=== PATIENT | male | born 1950 | race Hispanic/Latino ===

== ENCOUNTER 2019-02-12 06:13 | Observation (INO) | payer MEDICARE ==
[2019-02-12] MEDS ORDERED: NACL 0.9% 500 ML 500 ML IV SCH (07:00)
[2019-02-12 07:13] LABS: Basophils # (Auto) 0.1 K/mm3 (0.0-0.1); Basophils % (Auto) 1.1 % (0.0-1.8); Eosinophils # (Auto) 0.2 K/mm3 (0.0-0.4); Eosinophils % (Auto) 2.7 % (0.0-4.3); Hematocrit 44.3 % (35.5-45.6); Hemoglobin 15.1 gm/dl (11.8-15.2); Lymphocytes % (Auto) 30.2 % (13.4-35.0); Mean Corpuscular HGB Conc 34 % (32-34); Mean Corpuscular Volume 88 fl (84-94); Monocytes # (Auto) 0.8 K/mm3 (0.0-0.8); Platelet Count 202 K/mm3 (140-440); Red Blood Count 5.05 M/mm3 (3.65-5.03); Red Cell Distribution Width 13.7 % (13.2-15.2)
[2019-02-12 07:24] LABS: INR 0.95 (0.87-1.13)
[2019-02-12 07:25] LABS: Partial Thromboplastin Time 24.6 Sec. (24.2-36.6)
[2019-02-12] MEDS: ECOTRIN PO SCH ×2 (07:25→22:10)
[2019-02-12 07:34] LABS: BUN/Creatinine Ratio 16; Blood Urea Nitrogen 13 mg/dL (9-20); Calcium 9.2 mg/dL (8.4-10.2); Hemolysis Index 1
[2019-02-12] MEDS ORDERED: SUBLIMAZE ONE (08:27)
[2019-02-12] MEDS ORDERED: SOLU-Medrol ONE (08:27)
[2019-02-12] MEDS ORDERED: VERSED ONE (08:27)
[2019-02-12] MEDS ORDERED: BENADRYL ONE (08:27)
[2019-02-12] MEDS ORDERED: XYLOCAINE 2% INFILTRATI ONE ×2 (08:28→09:17)
[2019-02-12] MEDS ORDERED: NITROGLYCERIN SYRINGE 3 ML ONE (08:28)
[2019-02-12] MEDS ORDERED: HEPARIN/NS 5000 UNIT/500ML(CATH LAB) 1,000 ML IR ONE (08:28)
[2019-02-12] MEDS ORDERED: CALAN ONE (08:28)
[2019-02-12] MEDS ORDERED: PEPCID IV ONE (08:32)
[2019-02-12] MEDS: HEPARIN 10,000 UNITS/10 ML ONE ×3 (09:03→09:28)
[2019-02-12] MEDS ORDERED: ATROPINE 0.1% (CARDIAC) ONE (09:25)
[2019-02-12] MEDS ORDERED: NACL 0.9% 500 ML 500 ML ONE (09:25)
[2019-02-12] MEDS ORDERED: ALUM-MAG HYDROX-SIMETH 200-200-20MG/5ML ONE (09:46)
[2019-02-12] MEDS ORDERED: PLAVIX ONE (09:46)
[2019-02-12] MEDS ORDERED: D50W (25GM) Syringe IV PRN (10:21)
--- NOTE | 2019-02-12 10:26 | Short Stay Summary ---
Short Stay Documentation Date of service: 02/12/19 - History H&P: obtained from office - Allergies and Medications Current Medications: Allergies iodine Allergy (Unverified 02/12/19 06:14) Itching Home Medications Medication Instructions Recorded Confirmed Last Taken Type Lisinopril 10 mg PO DAILY 02/09/15 02/12/19 1 Day Ago History ~02/11/19 metFORMIN [Glucophage] 500 mg PO BID 02/09/15 02/12/19 2 Days Ago History ~02/10/19 AtorvaSTATin 20 mg PO DAILY 02/12/19 02/12/19 1 Day Ago History ~02/11/19 Cholecalciferol (Vitamin D3) 1,000 units PO DAILY 02/12/19 02/12/19 1 Day Ago History ~02/11/19 Eql [place]-3 Fish Oil 1,000 mg 1,000 mg PO DAILY 02/12/19 02/12/19 1 Day Ago History ~02/11/19 Metoprolol 25 mg PO DAILY 02/12/19 02/12/19 1 Day Ago History ~02/11/19 Active Medications Aspirin (Ecotrin) 325 mg PO QDAY [facility] Last Admin: 02/12/19 07:25 Dose: 325 mg Documented by: Atorvastatin Calcium (Lipitor) 80 mg PO QHS TERESA Clopidogrel Bisulfate (Plavix) 75 mg PO QDAY [facility] Dextrose (D50w (25gm) Syringe) 50 ml IV PRN PRN PRN Reason: Hypoglycemia Sodium Chloride (Nacl 0.9% 500 Ml) 500 mls @ 50 mls/hr IV DIRECT TERESA Stop: 02/12/19 16:59 Last Admin: 02/12/19 07:30 Dose: 50 mls/hr Documented by: Insulin Human Lispro (Humalog) 0 unit SUB-Q ACHS TERESA; Protocol Lisinopril (Zestril) 20 mg PO QDAY TERESA Metoprolol Succinate (Toprol Xl) 12.5 mg PO QDAY [facility] - Brief post op/procedure progress note Date of procedure: 02/12/19 Pre-op diagnosis: chest pain Post-op diagnosis: other (CAD) Procedure: [facility] with PCI - see dictated cath report Anesthesia: local Estimated blood loss: none Condition: stable - Disposition Condition at discharge: Good Disposition: DC-01 TO HOME OR SELFCARE - Discharge Diagnoses (1) CAD (coronary artery disease) Status: Chronic (2) Stented coronary artery Status: Chronic (3) HTN (hypertension) Status: Chronic (4) Diabetes Status: Chronic (5) Hyperlipidemia Status: Chronic Short Stay Discharge Plan Activity: advance as tolerated Diet: low fat, low cholesterol, low salt, diabetic Wound: open to air, keep clean and dry, per your surgeon's advice Follow up with: MARGUERITE RUSHING MD [Primary Care Provider] - 7 Days SIVA IGLESIAS MD [Staff Physician] - 7 Days ([place] office, 02/24/2019 @ 3:00PM) Prescriptions: AtorvaSTATin [Lipitor] 80 mg PO QHS #30 tablet Clopidogrel [Plavix] 75 mg PO QDAY #30 tablet
[2019-02-12] MEDS: HumaLOG SUB-Q SCH ×3 (16:30→22:13)
[2019-02-13 05:42] LABS: Basophils % (Auto) 0.1 % (0.0-1.8); Hematocrit 44.5 % (35.5-45.6); Hemoglobin 14.7 gm/dl (11.8-15.2); Lymphocytes # (Auto) 0.9 K/mm3 (1.2-5.4); Lymphocytes % (Auto) 6.8 % (13.4-35.0); Mean Corpuscular HGB Conc 33 % (32-34); Mean Corpuscular Volume 89 fl (84-94); Monocytes # (Auto) 1.3 K/mm3 (0.0-0.8); Monocytes % (Auto) 10.1 % (0.0-7.3); Platelet Count 219 K/mm3 (140-440); Red Cell Distribution Width 13.8 % (13.2-15.2)
[2019-02-13 05:56] LABS: Creatine Kinase MB 2.9 ng/mL (0.0-4.0)
[2019-02-13 05:57] LABS: BUN/Creatinine Ratio 24; Blood Urea Nitrogen 17 mg/dL (9-20); Calcium 9.4 mg/dL (8.4-10.2); Hemolysis Index 40
[2019-02-13 09:38] VITALS: BP 141/75
[2019-02-13] MEDS ORDERED: ZESTRIL PO SCH (10:00)
[2019-02-13] MEDS ORDERED: PLAVIX PO SCH (10:00)
[2019-02-13] MEDS ORDERED: TOPROL XL PO SCH (10:00)
[2019-02-13] MEDS: ECOTRIN PO SCH (10:52)
--- NOTE | 2019-02-13 10:58 | Discharge Summary ---
<BETSY MIXON - Last Filed: 02/13/19 10:54> Providers - Providers Date of Admission: 02/12/19 10:14 Date of discharge: 02/13/19 Attending physician: SUSAN BUI 02/12/19 Consult to Cardiac Rehabilitation [CONS] Routine Reason For Exam: post pci 02/12/19 06:38 Consult to Cardiac Rehabilitation [CONS] Routine Reason For Exam: Cardiac Rehab Evaluation Primary care physician: MARGUERITE RUSHING MD Hospitalization Reason for admission: PCI Condition: Good Procedures: PCI Hospital course: Patient stable since procedure. No complaints. Disposition: DC-01 TO HOME OR SELFCARE - Discharge Diagnoses (1) CAD (coronary artery disease) Status: Chronic (2) Diabetes Status: Chronic Qualifiers: Diabetes mellitus type: type 2 (3) HTN (hypertension) Status: Chronic (4) Hyperlipidemia Status: Chronic (5) Stented coronary artery Status: Chronic (6) Calculus of left kidney Status: Acute Core Measure Documentation - Palliative Care Palliative Care/ Comfort Measures: Not Applicable Exam - Constitutional Vitals: Temp Pulse Resp BP Pulse Ox 97.4 F L 71 16 141/75 96 02/13/19 08:18 02/13/19 08:18 02/13/19 08:18 02/13/19 08:18 02/13/19 08:18 General appearance: Present: no acute distress - EENT Eyes: Present: PERRL ENT: hearing intact - Neck Neck: Present: supple - Respiratory Respiratory effort: normal - Cardiovascular Rhythm: regular - Extremities Extremities: no ischemia Peripheral Pulses: within normal limits - Abdominal General gastrointestinal: Present: soft, non-tender Male genitourinary: Present: deferred - Rectal Rectal Exam: deferred - Integumentary Integumentary: Present: clear - Musculoskeletal Musculoskeletal: strength equal bilaterally - Psychiatric Psychiatric: appropriate mood/affect - Neurologic Neurologic: other (Deferred) - Additional findings Additional findings: Right radial and right groin sites c/d/i with no complications. Plan Activity: other (May resume exercise on 02/15. ) Weight Bearing Status: Weight Bear as Tolerated Diet: low fat, low cholesterol, low salt Wound: open to air Special Instructions: hold Metformin, other (hold Metformin for 48 hours after procedure. ) Follow up with: SIVA IGLESIAS MD [Staff Physician] - 7 Days ([place] office, 02/24/2019 @ 3:00PM) MARGUERITE RUSHING MD [Primary Care Provider] - 7 Days Prescriptions: AtorvaSTATin [Lipitor] 80 mg PO QHS #30 tablet Clopidogrel [Plavix] 75 mg PO QDAY #30 tablet <SARA GROVE - Last Filed: 02/17/19 17:06> Providers - Providers Date of Admission: 02/12/19 10:14 Attending physician: SUSAN BUI 02/12/19 Consult to Cardiac Rehabilitation [CONS] Routine Reason For Exam: post pci 02/12/19 06:38 Consult to Cardiac Rehabilitation [CONS] Routine Reason For Exam: Cardiac Rehab Evaluation Primary care physician: MARGUERITE RUSHING MD Core Measure Documentation - Core Measures Any of the following diagnoses?: none Exam - Constitutional Vitals: Temp Pulse Resp BP Pulse Ox 97.4 F L 71 16 141/75 96 02/13/19 08:18 02/13/19 08:18 02/13/19 08:18 02/13/19 08:18 02/13/19 08:18
--- NOTE | 2019-02-13 11:00 | Progress Note ---
Assessment and Plan Patient stable for discharge. Follow-up with Dr. Summers scheduled in our office on 02/24/2019. Patient seen in conjunction with Dr. Funez, who agrees with assessment and plan. - Patient Problems (1) CAD (coronary artery disease) Current Visit: Yes Status: Chronic (2) Diabetes Current Visit: Yes Status: Chronic Qualifiers: Diabetes mellitus type: type 2 (3) HTN (hypertension) Current Visit: Yes Status: Chronic (4) Hyperlipidemia Current Visit: Yes Status: Chronic (5) Stented coronary artery Current Visit: Yes Status: Chronic (6) Calculus of left kidney Current Visit: No Status: Acute Subjective Date of service: 02/13/19 Principal diagnosis: Chest pain Interval history: Patient is post-PCI. Resting in bed in NAD. Right radial and right groin sites c/d/i with no complications. Objective - Constitutional Vitals: Last Vital Signs Temp 97.4 F L 02/13/19 08:18 Pulse 71 02/13/19 08:18 Resp 16 02/13/19 08:18 BP 141/75 02/13/19 08:18 Pulse Ox 96 02/13/19 08:18 General appearance: Present: no acute distress - EENT Eyes: PERRL ENT: hearing intact - Neck Neck: supple - Respiratory Respiratory effort: normal - Breasts Breasts: deferred - Cardiovascular Rhythm: regular Extremities: pulses intact, No edema - Gastrointestinal General gastrointestinal: Present: soft, non-tender Rectal Exam: deferred - Integumentary Integumentary: warm, dry - Musculoskeletal Musculoskeletal: strength equal bilaterally - Neurologic Neurologic: other (Deferred) - Psychiatric Psychiatric: appropriate mood/affect - Labs CBC & Chem 7: 02/13/19 05:05 02/13/19 05:05 Labs: Abnormal lab results 02/12/19 02/12/19 02/12/19 Range/Units 09:30 09:41 12:10 WBC (4.5-11.0) K/mm3 Lymph % (Auto) (13.4-35.0) % [place] % (Auto) (0.0-7.3) % Lymph # (1.2-5.4) K/mm3 [place] # (0.0-0.8) K/mm3 Seg Neutrophils % (40.0-70.0) % Seg Neutrophils # (1.8-7.7) K/mm3 Activated Clotting Time 213 H 230 H (74-137) Potassium (3.6-5.0) mmol/L Creatinine (0.8-1.5) mg/dL Glucose (75-100) mg/dL POC Glucose 130 H (70-105) 02/12/19 02/12/19 02/13/19 Range/Units 17:06 20:53 05:05 WBC 13.2 H (4.5-11.0) K/mm3 Lymph % (Auto) 6.8 L (13.4-35.0) % [place] % (Auto) 10.1 H (0.0-7.3) % Lymph # 0.9 L (1.2-5.4) K/mm3 [place] # 1.3 H (0.0-0.8) K/mm3 Seg Neutrophils % 83.0 H (40.0-70.0) % Seg Neutrophils # 10.9 H (1.8-7.7) K/mm3 Activated Clotting Time (74-137) Potassium (3.6-5.0) mmol/L Creatinine (0.8-1.5) mg/dL Glucose (75-100) mg/dL POC Glucose 132 H 219 H (70-105) 02/13/19 02/13/19 Range/Units 05:05 08:25 WBC (4.5-11.0) K/mm3 Lymph % (Auto) (13.4-35.0) % [place] % (Auto) (0.0-7.3) % Lymph # (1.2-5.4) K/mm3 [place] # (0.0-0.8) K/mm3 Seg Neutrophils % (40.0-70.0) % Seg Neutrophils # (1.8-7.7) K/mm3 Activated Clotting Time (74-137) Potassium 5.1 H (3.6-5.0) mmol/L Creatinine 0.7 L (0.8-1.5) mg/dL Glucose 143 H (75-100) mg/dL POC Glucose 112 H (70-105) Medications & Allergies - Medications Allergies/Adverse Reactions: Allergies iodine Allergy (Unverified 02/12/19 06:14) Itching Home Medications: Home Medications Medication Instructions Recorded Confirmed Last Taken Type metFORMIN [Glucophage] 500 mg PO BID 02/09/15 02/12/19 2 Days Ago History ~02/10/19 Aspirin EC 325 mg PO QDAY tablet 02/12/19 Unknown Rx AtorvaSTATin [Lipitor] 80 mg PO QHS #30 tablet 02/12/19 Unknown Rx Cholecalciferol (Vitamin D3) 1,000 units PO DAILY 02/12/19 02/12/19 1 Day Ago History ~02/11/19 Clopidogrel [Plavix] 75 mg PO QDAY #30 tablet 02/12/19 Unknown Rx Eql [place]-3 Fish Oil 1,000 mg 1,000 mg PO DAILY 02/12/19 02/12/19 1 Day Ago History ~02/11/19 Lisinopril [Zestril TAB] 20 mg PO QDAY tablet 02/12/19 Unknown Rx Metoprolol Xl [Metoprolol 12.5 mg PO QDAY tablet 02/12/19 Unknown Rx SUCCINATE ER TAB] Active Medications: Generic Name Dose Route Start Last Admin Trade Name Freq PRN Reason Stop Dose Admin Aspirin 325 mg 02/12/19 10:00 02/13/19 10:52 Ecotrin PO 325 mg QDAY TERESA Administration Atorvastatin Calcium 80 mg 02/12/19 22:00 02/12/19 22:09 Lipitor PO 80 mg QHS TERESA Administration Clopidogrel Bisulfate 75 mg 02/13/19 10:00 02/13/19 10:52 Plavix PO 75 mg QDAY TERESA Administration Dextrose 50 ml 02/12/19 10:21 D50w (25gm) Syringe IV PRN PRN Hypoglycemia Insulin Human Lispro 0 unit 02/12/19 11:30 02/12/19 22:13 Humalog SUB-Q 3 unit ACHS TERESA Administration Protocol Lisinopril 20 mg 02/13/19 10:00 02/13/19 10:52 Zestril PO 20 mg QDAY TERESA Administration Metoprolol Succinate 12.5 mg 02/13/19 10:00 02/13/19 10:52 Toprol Xl PO 12.5 mg QDAY TERESA Administration
--- NOTE | 2019-02-15 07:35 | Cardiac Catherization Report ---
CARDIAC CATHETERIZATION REFERRING PHYSICIAN: Dr. Summers. INDICATION FOR PROCEDURE: The patient is a pleasant 69-year-old gentleman with recurrent chest pain, abnormal submaximal treadmill stress test, referred for left heart catheterization on beta blockade. Risks, benefits, alternatives discussed at length prior to obtaining informed consent. Quit smoking in August. PROCEDURE IN DETAIL: The patient was brought to the catheterization lab in a postoperative state, prepped and draped in sterile fashion. Dino's test in right hand was normal. A 2 mL of 2% lidocaine used to anesthetize the right wrist. He is allergic to IODINE. He was premedicated appropriately 8 mL. We did obtain access to the right radial artery, but had spasm artery, I believe it is too small changed groin approach, 8 mL of 2% lidocaine used to anesthetize the right groin. A standard 6-[place] sheath used to cannulate the right common femoral artery via modified Seldinger technique. All exchanges performed to exchange a J-tip guidewire. JL3.5 catheter was used to engage the left main. No dampening or vegetations. Cineangiography performed in all multiple projections. JR4 catheter used to cross the aortic valve under fluoroscopic guidance. Left ventriculography performed in 30 [place] and 30 [place] projections via hand injections. Catheter flushed. Manual pullback performed with continuous pressure monitoring. Catheter used to engage the right coronary. No dampening or ventricularization. Cineangiography performed in all projections. DATA: Aortic pressure is 120/60, LV pressure is 120, LVEDP of 12 mmHg. Left ventriculography reveals normal systolic performance with estimated ejection fraction of 55-60%. No evidence of aortic stenosis. The patient remained in normal sinus rhythm throughout the procedure. It should be noted that his coronaries are rather small for an adult male. He has calcium throughout his coronary tree. CORONARY ANATOMY: His right coronary is a moderate sized vessel, courses AV groove, distally bifurcates in the posterior and posterolateral branches. There is a 99% stenosis in the mid segment, which is ulcerated and very likely culprit lesion. He did have dampening of the catheter, which is also indicative of a significant stenosis. No other disease in the right coronary. The left main is free of significant disease, bifurcates in left anterior descending and left circumflex. Left circumflex is a moderate sized vessel, courses AV groove, distally gives off an OM trunk, diminutive to AV groove circ. Left to right collaterals identified which further demonstrates the degree of stenosis in the right coronary. LAD is a moderate sized vessel, courses anterior intergroove. Moderate scattered luminal irregularities calcified vessel. Maximal narrowing of approximately 25-30% in the mid segment. Given his findings symptoms with typical angina, abnormal treadmill stress test presence of antianginal medications, it is decided to proceed with PCI of culprit 99% mid right coronary lesion. Additional heparin is given. Using a JR4 guide, a [place] wire used to cross the lesion without difficulty, predilated lesion with a 2.5 x 8 balloon. Next, we stented with a 2.5 x 12 Resolute Adair at 14 GUER[place] for 20 seconds with excellent angiographic result. Intravascular ultrasound performed, reveals a well apposed, well expanded stent, moderate diffuse disease elsewhere, but no obstructive disease identified. CONCLUSIONS: 1. Severe single vessel coronary artery disease in the milieu of unstable angina. A successful IVUS guided PCI with placement of drug-eluting stent Adair 2.5 x 12 (with excellent final angiographic and ultrasonographic results). No immediate complications were noted. 2. Moderate diffuse nonobstructive disease with heavily calcified coronary tree, likely indicative of long-term tobacco abuse and diabetes, but no other obstructive lesions are identified. 3. Normal left ventricular function, estimated ejection fraction of 55-60%. 4. No evidence of aortic stenosis. PLAN: At this point, medical management. Continue optimal medical therapy. Add statin therapy, Plavix, aspirin and aggressive primary and secondary prevention measures. Standard groin care. The patient is clinically stable, chest pain free. Results of procedure explained to the patient and family. All questions and concerns were addressed. ADDENDUM I directly supervised the administration of moderate sedation with fentanyl and Versed from 8:58 a.m. to 9:40 a.m. JOB: [id number] JOB# [id number] SBM/NTS
== END 2019-02-13 12:00 | disposition home or self-care (01) ==
LOC: CATHLABREC 06:13 → 4A 10:14
PROVIDERS: ADMIT Internal Medicine; ATTEND Internal Medicine
DX: I25.10 Atherosclerotic heart disease of native coronary artery without angina pectoris (principal); I10 Essential (primary) hypertension; E11.9 Type 2 diabetes mellitus without complications; E78.5 Hyperlipidemia, unspecified; N20.0 Calculus of kidney; F17.210 Nicotine dependence, cigarettes, uncomplicated; Z79.82 Long term (current) use of aspirin; Z79.899 Other long term (current) drug therapy; Z95.5 Presence of coronary angioplasty implant and graft; Z85.46 Personal history of malignant neoplasm of prostate; Z88.8 Allergy status to other drugs, medicaments and biological substances
CPT/HCPCS: 36415; 80048; 82550; 82553; 82962; 84484; 85025; 85347; 85610; 85730; 92978; 93005; 93010; 93458; 96372; A9270; C1725; C1753; C1769; C1874; C1887; C1894; C9600; G0378; J1200; J1644; J2250; J2930; J3010; J7040; 92928; J0461; Q9967